=== PATIENT | female | born 1940 | race Caucasian/White ===

== ENCOUNTER → 2017-10-07 | Outpatient (CLI) | payer MEDICARE, OTHER ==
[~2017-10-07] MED LIST: ASPIRIN 81M81 MG/TA2 PO; ASPIRIN E.C. 8181 MG PO; ASPIRIN E.C.325 MG PO; ATACAND PO; CALCIUM + D 5001 TAB PO; CLOPIDOGREL; GLUCOSAMINE; HCTZ 25MG25 MG PO; K-DUR 10 MEQ T10 MEQ PO; LASIX 20MG TABL20 MG PO; LORTAB 5/500 501 TAB PO; OSCAL 500MG/VI500 MG PO; PERCOCET 325 MG1 TA2 PO; PRILOSEC 20MG20 MG PO; VENTOLIN0.09 MG IH
== END ==
LOC: MC.RAD 11:13
DX: Z12.31 Encounter for screening mammogram for malignant neoplasm of breast (principal)

== ENCOUNTER 2019-03-01 15:54 | Emergency (ER) | payer MEDICARE, OTHER ==
[~2019-03-01] VITALS: Ht 152.4 cm; Wt 70.0 kg
[2019-03-01 15:59] VITALS: TEMP 98.2
[2019-03-01] MEDS ORDERED: AMITRIPTYLINE H10 M1 (16:07)
[2019-03-01] MEDS ORDERED: CEPHALEXIN500 M1 PO (16:54)
[2019-03-01 17:51] VITALS: BP 167/83; PULSE 63
== END 2019-03-01 17:51 | disposition home or self-care (01) ==
LOC: COL.ER 15:54
DX: S61.214A Laceration without foreign body of right ring finger without damage to nail, initial encounter (principal); I10 Essential (primary) hypertension; Z88.5 Allergy status to narcotic agent; Z23 Encounter for immunization; Z90.710 Acquired absence of both cervix and uterus; Z98.890 Other specified postprocedural states; W25.XXXA Contact with sharp glass, initial encounter; Y92.410 Unspecified street and highway as the place of occurrence of the external cause; Y93.G1 Activity, food preparation and clean up

== ENCOUNTER → 2019-03-12 | Outpatient (CLI) | payer MEDICARE, OTHER ==
[~2019-03-12] MED LIST changes: +AMITRIPTYLINE H10 M1; +CEPHALEXIN500 M1 PO
[2019-03-12 16:13] VITALS: BP 153/68; PULSE 74; TEMP 97.7
== END ==
LOC: COL.ER 16:05
DX: S61.212D Laceration without foreign body of right middle finger without damage to nail, subsequent encounter (principal); X58.XXXD Exposure to other specified factors, subsequent encounter

== ENCOUNTER → 2020-08-17 | Outpatient (CLI) | payer MEDICARE, OTHER ==
[2020-08-17 14:01] LABS: TROPONIN-I < 0.012 ng/mL (0.000-0.035)
== END ==
LOC: ZCOL.LAB 12:20
PROVIDERS: Internal Medicine Interventional Cardiology
DX: I20.9 Angina pectoris, unspecified (principal)

== ENCOUNTER 2023-12-04 17:28 | Emergency (ER) | payer MEDICARE, OTHER ==
[~2023-12-04] VITALS: Ht 152.4 cm; Wt 69.5 kg
[2023-12-04 17:35] VITALS: TEMP 97.7
[2023-12-04 18:01] LABS: BASO # 0.1 K/mm3 (0.0-0.2); BASO % 0.6 % (0.0-2.0); EOS # 0.2 K/mm3 (0.0-0.7); GRAN # 6.2 K/mm3 (1.4-6.5); GRAN % 61.8 % (42.2-75.2); HEMATOCRIT 38.7 % (37.0-47.0); HEMOGLOBIN 12.5 g/dl (12.5-16.0); LYMPH # 2.5 K/mm3 (1.2-3.4); LYMPH % 25.4 % (20.0-51.0); MEAN CELL VOLUME 92 fl (80.0-100.0); MEAN CORPUSCULAR HEMOGLOBIN 30 pg (27-31); MEAN CORPUSCULAR HGB CONC 32 g/dl (33.0-37.0); MEAN PLATELET VOLUME 9.7 fl (7.4-10.4); MONO % 9.8 % (1.7-9.3); PLATELET COUNT 314 K/mm3 (130-400); RED BLOOD COUNT 4.21 M/mm3 (4.10-5.30); REDCELL DISTRIBUTION WIDTH-CV 13.7 % (11.5-14.5)
[2023-12-04 18:16] LABS: ALANINE AMINOTRANSFERASE 14 U/L (0-55); ALBUMIN 3.9 g/dL (3.4-4.8); ALKALINE PHOSPHATASE 66 U/L (40-150); ANION GAP 9 mmol/L (7-16); AST,SGOT 17 U/L (5-34); BILIRUBIN,TOTAL 0.4 mg/dL (0.2-1.2); BLOOD UREA NITROGEN 21 mg/dL (10-20); CALCIUM 8.6 mg/dL (8.4-10.2); CHLORIDE 106 mEq/L (98-107); GLUCOSE 122 mg/dL (70-99); POTASSIUM 4.1 mEq/L (3.5-4.5); SODIUM 140 mEq/L (136-145); TOTAL PROTEIN 7.6 g/dl (6.2-8.1)
[2023-12-04 18:24] LABS: TROPONIN-I < 0.010 ng/mL (0.00-0.033)
[2023-12-04 19:24] VITALS: BP 149/65; PULSE 53
== END 2023-12-04 19:41 | disposition home or self-care (01) ==
LOC: COL.ER 17:28
PROVIDERS: Personal Emergency Response Attendant
DX: R07.9 Chest pain, unspecified (principal); Z95.818 Presence of other cardiac implants and grafts